=== PATIENT | male | born 1950 | race Caucasian/White ===

== ENCOUNTER 2017-03-25 08:29 | Emergency (ER) | payer OTHER ==
[~2017-03-25] VITALS: Ht 180.3 cm; Wt 80.7 kg
[~2017-03-25 08:29] MED LIST: ASCO10004 PO; ASPI-621 PO; ATOR10TA PO; CA C1TAB28 PO; DILT180C72 PO; EZET10TA3 PO; IMITREX; LACT1CAP35 PO; MAGNESIUM PO; NUCYNTA PO; OMEG500C3 PO; SERT20OR PO; SERT25TA3 PO; UBID100C11 PO
[2017-03-25] MEDS ORDERED: SODIUM CHLORIDE FLUSH 10ML SYR IVF ONE (09:00)
[2017-03-25] MEDS ORDERED: MORPHINE SULFATE 4 MG/ML, 1ML IVPush PRN (09:00)
[2017-03-25] MEDS ORDERED: ONDANSETRON ODT 4 MG PO ONE (09:00)
[2017-03-25] MEDS ORDERED: ROSU20TA PO (09:01)
[2017-03-25] MEDS ORDERED: MORPHINE SULFATE 4 MG/ML, 1ML ONE (09:03)
[2017-03-25] MEDS ORDERED: ONDANSETRON ODT 4 MG ONE (09:03)
[2017-03-25 09:48] VITALS: BP 126/72
== END 2017-03-25 10:14 | disposition home or self-care (01) ==
LOC: ED 10:08
DX: S43.101A Unspecified dislocation of right acromioclavicular joint, initial encounter (principal); I10 Essential (primary) hypertension; E78.00 Pure hypercholesterolemia, unspecified; F32.9 Major depressive disorder, single episode, unspecified; W18.30XA Fall on same level, unspecified, initial encounter; Y93.89 Activity, other specified; Y92.488 Other paved roadways as the place of occurrence of the external cause; Y99.8 Other external cause status
CPT/HCPCS: 73030; 96374; 99284; Q0162

== ENCOUNTER → 2017-07-04 | Outpatient (CLI) | payer OTHER ==
[~2017-07-04] MED LIST changes: +EZET10TA18 PO; -EZET10TA3 PO; +ROSU20TA PO; -UBID100C11 PO; +UBID100C41 PO
== END | disposition home or self-care (01) ==
LOC: CVU 12:19
PROVIDERS: ATTEND Internal Medicine Cardiovascular Disease
DX: I51.7 Cardiomegaly (principal); I35.2 Nonrheumatic aortic (valve) stenosis with insufficiency; I65.23 Occlusion and stenosis of bilateral carotid arteries; G62.9 Polyneuropathy, unspecified; R60.0 Localized edema; I10 Essential (primary) hypertension; E78.00 Pure hypercholesterolemia, unspecified; Z95.2 Presence of prosthetic heart valve
CPT/HCPCS: 93306; 93880; 93922

== ENCOUNTER → 2017-08-22 | Outpatient (CLI) | payer OTHER | END | disposition home or self-care (01) | LOC: CFH 13:36 | PROVIDERS: ATTEND Orthopaedic Surgery | DX: M25.511 Pain in right shoulder (principal) ==

== ENCOUNTER → 2017-10-09 | Outpatient (CLI) | payer OTHER ==
[~2017-10-09] MED LIST changes: +PREG100C PO
== END | disposition home or self-care (01) ==
LOC: STAR 12:33
PROVIDERS: ATTEND Orthopaedic Surgery
DX: Z01.818 Encounter for other preprocedural examination (principal); R94.31 Abnormal electrocardiogram [ECG] [EKG]; S43.51XA Sprain of right acromioclavicular joint, initial encounter; X58.XXXA Exposure to other specified factors, initial encounter; Y93.89 Activity, other specified; Y92.89 Other specified places as the place of occurrence of the external cause; Y99.8 Other external cause status
CPT/HCPCS: 93005

== ENCOUNTER 2017-10-18 05:39 | Day surgery (SDC) | payer OTHER ==
[~2017-10-18] VITALS: Ht 182.9 cm; Wt 84.2 kg
[2017-10-18] MEDS ORDERED: LACTATED RINGERS 1,000 ML IV SCH (06:14)
[2017-10-18 06:15] VITALS: BP 118/75
[2017-10-18] MEDS ORDERED: BACITRACIN 50,000 UNIT ONE (06:15)
[2017-10-18] MEDS ORDERED: EPINEPHRINE TOPICAL SOLN 1 MG/ML, 30ML ONE (06:15)
[2017-10-18] MEDS ORDERED: FENTANYL PF 250 MCG/5ML ONE (06:17)
[2017-10-18] MEDS ORDERED: MIDAZOLAM 1 MG/ML, 2ML ONE (06:17)
[2017-10-18] MEDS ORDERED: ROCURONIUM 10 MG/ML,10ML ONE (06:17)
[2017-10-18] MEDS ORDERED: DEXAMETHASONE 4 MG/ML, 1ML ONE (06:17)
[2017-10-18] MEDS ORDERED: LIDOCAINE GEL 2%, 5ML ONE (06:17)
[2017-10-18] MEDS ORDERED: CEFAZOLIN 1,000 MG ONE ×2 (06:17)
[2017-10-18] MEDS ORDERED: PROPOFOL 10 MG/ML, 20ML ONE (06:17)
[2017-10-18] MEDS ORDERED: ONDANSETRON 2MG/ML, 2ML ONE (06:18)
[2017-10-18] MEDS ORDERED: BUPIVACAINE/PF 0.5% ONE (06:21)
[2017-10-18] MEDS ORDERED: GLYCOPYRROLATE 0.2MG/1ML, 5ML ONE (07:10)
[2017-10-18] MEDS ORDERED: EPHEDRINE 50 MG/ML, 1ML ONE (07:10)
[2017-10-18] MEDS ORDERED: NEOSTIGMINE 1 MG/ML, 10ML ONE (07:10)
[2017-10-18] MEDS ORDERED: EPINEPHRINE TOPICAL SOLN 1 MG/ML, 30ML TP ONE (07:54)
[2017-10-18] MEDS ORDERED: BACITRACIN 50,000 UNIT IM ONE (07:54)
[2017-10-18] MEDS ORDERED: ONDANSETRON 2MG/ML, 2ML IVPush PRN (08:00)
[2017-10-18] MEDS ORDERED: EPHEDRINE 50 MG/ML, 1ML IVPush PRN (08:00)
[2017-10-18] MEDS ORDERED: METOPROLOL 1 MG/ML, 5ML IV PRN (08:00)
[2017-10-18] MEDS ORDERED: hydrALAzine 20 MG/ML, 1ML IV PRN (08:00)
[2017-10-18] MEDS ORDERED: HYDROmorphone 1 MG/ML, 1ML IV PRN (08:00)
[2017-10-18] MEDS ORDERED: PROMETHAZINE 25 MG/ML, 1ML IV PRN (08:00)
[2017-10-18] MEDS ORDERED: FENTANYL PF 100 MCG/2ML IV PRN (08:00)
[2017-10-18] MEDS ORDERED: ALBUTEROL SULFATE 2.5 MG/3 ML NPPB PRN (08:00)
[2017-10-18] MEDS ORDERED: ACETAMINOPHEN 325 MG TABLET PO PRN (08:00)
[2017-10-18] MEDS ORDERED: LABETALOL 5MG/ML, 20ML IV PRN (08:00)
[2017-10-18] MEDS ORDERED: OXYcodone 5 MG/5 ML ORAL.SOL UDC PO PRN (08:00)
== END 2017-10-18 11:00 ==
LOC: OUT 05:39
PROVIDERS: ATTEND Orthopaedic Surgery
DX: S43.101A Unspecified dislocation of right acromioclavicular joint, initial encounter (principal); E78.00 Pure hypercholesterolemia, unspecified; Z72.89 Other problems related to lifestyle; X58.XXXA Exposure to other specified factors, initial encounter; Y93.89 Activity, other specified; Y92.89 Other specified places as the place of occurrence of the external cause; Y99.8 Other external cause status
CPT/HCPCS: 23550; 73020; 76001; C1713; C1762; J0690; J1100; J2250; J2405; J2704; J2710; J3010; J3490; J7120

== ENCOUNTER → 2017-11-25 | Outpatient (CLI) | payer OTHER | END | disposition home or self-care (01) | LOC: CVU 09:51 | PROVIDERS: ATTEND Internal Medicine Cardiovascular Disease | DX: I48.91 Unspecified atrial fibrillation (principal) | CPT/HCPCS: 93978 ==

== ENCOUNTER → 2018-06-25 | Outpatient (CLI) | payer MEDICARE | END | disposition home or self-care (01) | LOC: CFH 09:36 | PROVIDERS: ATTEND Pain Medicine Pain Medicine | DX: M51.34 Other intervertebral disc degeneration, thoracic region (principal); M41.84 Other forms of scoliosis, thoracic region; G62.81 Critical illness polyneuropathy | CPT/HCPCS: 72146 ==

== ENCOUNTER 2019-06-12 12:15 | Outpatient (CLI) | payer MEDICARE | END 2019-06-12 23:59 | disposition home or self-care (01) | LOC: CVU 12:15 | PROVIDERS: ATTEND Internal Medicine Cardiovascular Disease | DX: I35.1 Nonrheumatic aortic (valve) insufficiency (principal); I65.23 Occlusion and stenosis of bilateral carotid arteries; I10 Essential (primary) hypertension; E78.00 Pure hypercholesterolemia, unspecified | CPT/HCPCS: 93306; 93880 ==